=== PATIENT | female | born 1985 | race Caucasian/White ===

== ENCOUNTER 2016-04-28 09:14 | Emergency (ER) ==
[2016-04-28 09:27] VITALS: BP 110/78; TEMP 97.5; BMI 19.0
--- NOTE | 2016-04-28 09:36 | ED.PDOC ---
General ED Provider: Dr. RICCARDO SCOTT JR Chief Complaint: Tooth Problem Stated Complaint: FOR THE PAST WEEK UPPER AND LOWER GUMS VERY SORE.[End]3 days 97.5 77 16 98 7/10 UPPER AND LOWER GUMS DARK PINK IN COLOR.[End]. MOTRIN 600MG AT 2030 LAST NIGHT Time Seen by Physician: 09:31 Mode of Arrival: Walk-In Information Source: Patient Exam Limitations: No limitations Nursing and Triage Documentation Reviewed and Agree: No EENT Complaint Exam - Dental/Oral Complaint/Exam Tooth Findings: Present: Gross decay (note blck plaques between lower incisors patiet no=freda unable to manipulate floss due to closeness of neeth) Cervical Lymphadenopathy Present: No Facial Swelling Present: No Bleeding Present: No Review of Systems - Review Of Systems Constitutional: Reports: Malaise Eyes: Reports: No symptoms Ears, Nose, Mouth, Throat: Reports: Mouth pain Respiratory: Reports: No symptoms Cardiac: Reports: No symptoms GI: Reports: No symptoms : Reports: No symptoms Musculoskeletal: Reports: No symptoms Skin: Reports: No symptoms (note clubbing of fingers) Neurological: Reports: No symptoms Endocrine: Reports: No symptoms Hematologic/Lymphatic: Reports: No symptoms All Other Systems: Other Past Medical History - Past Medical History Endocrine: Reports: None Cardiovascular: Reports: None Respiratory: Reports: Bronchitis Hematological: Reports: None, Anemia Gastrointestinal: Reports: None Genitourinary: Reports: None Neuro/Psych: Reports: None, Migraine Musculoskeletal: Reports: None Cancer: Reports: None Last Menstrual Period: 04/20 Other Pertinent Past Medical History: discuss drug use by unable to determine if patient participating"wh - Surgical History General Surgical History: Reports: - Family History Family History: Reports: Unknown - Social History Smoking Status: Current some day smoker Hx Substance Use: No Alcohol Screening: None - Immunizations Tetanus Shot up to Date: Yes Physical Exam - Physical Exam Appearance: Well-appearing, Thin Pain Distress: Mild Eyes: KACEY, EOMI, Conjunctiva clear ENT: Erythema (gms with extensive interdental plaque) Neck: Supple Respiratory: Airway patent, Breath sounds clear, Breath sounds equal, Respirations nonlabored Psychiatric: Affect appropriate Critical Care Note - Critical Care Note Total Time (mins): 0 Course - Course Vital Signs: Temp Pulse Resp BP Pulse Ox 04/28/16 09:15 97.5 F L 77 16 110/78 98 Departure - Departure Time of Disposition: 09:40 Disposition: HOME SELF-CARE Discharge Problem: Gingivitis due to dental plaque Instructions: Gingivitis (ED) Condition: Fair Pt referred to PMD for follow-up: Yes Additional Instructions: Follow up with dentist as soon as possible antibiotic until gone Motrin for pain Willis for pain not controlled will require follow up with dentist; discuss ways of cleaning affected area return if fever over 101,0 Prescriptions: Hydrocodone Bit/Acetaminophen [Willis 5-325] 1 - 2 tab PO Q6HR PRN #12 tablet PRN Reason: pain Clindamycin HCl 300 mg PO QID #40 capsule Ibuprofen [Motrin] 600 mg PO QID PRN #30 tablet PRN Reason: PAIN Allergies/Adverse Reactions: Allergies hydrocodone [Hydrocodone] Allergy (Verified 07/25/15 05:49) Home Medications: Ambulatory Orders Clindamycin HCl 300 mg PO QID #40 capsule 04/28/16 Hydrocodone Bit/Acetaminophen [Willis 5-325] 1 - 2 tab PO Q6HR PRN #12 tablet Ibuprofen [Motrin] 600 mg PO QID PRN #30 tablet 04/28/16
== END 2016-04-28 09:55 | disposition home or self-care (01) ==
LOC: ED 09:14
DX: K05.10 Chronic gingivitis, plaque induced (principal); K02.9 Dental caries, unspecified; Z72.0 Tobacco use
CPT/HCPCS: 99282

== ENCOUNTER 2017-01-31 13:08 | Outpatient (CLI) ==
[2012-10-01 23:17] VITALS: TEMP 97.6
[2017-01-31 13:28] VITALS: BMI 16.4
== END 2017-01-31 13:09 | disposition critical access hospital (66) ==
LOC: AMBL 13:08
PROVIDERS: ATTEND Internal Medicine
DX: S61.411A Laceration without foreign body of right hand, initial encounter (principal); S19.9XXA Unspecified injury of neck, initial encounter; W25.XXXA Contact with sharp glass, initial encounter; Y04.8XXA Assault by other bodily force, initial encounter

== ENCOUNTER 2017-02-14 07:56 | Emergency (ER) ==
[2017-02-14 08:07] VITALS: BP 110/75; TEMP 97.2; BMI 16.7
--- NOTE | 2017-02-14 08:23 | ED.PDOC ---
General ED Provider: Dr. EFRAIN GONZALEZ Chief Complaint: Urinary Problem Stated Complaint: dysuria Time Seen by Physician: 08:10 Mode of Arrival: Walk-In Information Source: Patient Exam Limitations: No limitations Nursing and Triage Documentation Reviewed and Agree: Yes Complaint Exam - Complaint/Exam Patient Complains of: Reports: Dysuria Onset/Duration: 1 day Timing: Intermittent Episodes of Voiding Over Last 12 Hours: 3 Initial Severity: Mild Current Severity: Mild Location of Pain: Reports: Suprapubic Character: Reports: Cloudy urine Aggravating: Reports: None Alleviating: Reports: None Associated Signs and Symptoms: Reports: Dysuria. Denies: Diaphoresis, Back pain , Fever, Hematuria, Constipation, Blood in stool, Rectal pain, Appetite change, Nausea, Vomiting, Decreased urine output, Increased urine frequency, Increased thirst, Decreased activity, Lethargy, Abdominal Pain, Bubble bath use, Vaginal bleeding, Vaginal discharge, Genital swelling, Genital blisters, Retained foreign body Ectopic Risk Factors: Reports: None Ovarian Torsion Risk Factors: Reports: None Surgical Obstruction Risk Factors: Reports: None RH Status: Unknown Related Surgical History: Reports: None Abdominal Findings: Present: None Differential Diagnoses: Ovarian Torsion, UTI Review of Systems - Review Of Systems Constitutional: Reports: No symptoms Eyes: Reports: No symptoms Ears, Nose, Mouth, Throat: Reports: No symptoms Respiratory: Reports: No symptoms Cardiac: Reports: No symptoms GI: Reports: No symptoms : Reports: Dysuria Musculoskeletal: Reports: No symptoms Skin: Reports: No symptoms Neurological: Reports: No symptoms Endocrine: Reports: No symptoms Hematologic/Lymphatic: Reports: No symptoms All Other Systems: Reviewed and Negative Past Medical History - Past Medical History Previously Healthy: Yes Endocrine: Reports: None Cardiovascular: Reports: None Respiratory: Reports: Bronchitis Hematological: Reports: None, Anemia Gastrointestinal: Reports: None Genitourinary: Reports: None Neuro/Psych: Reports: None, Migraine Musculoskeletal: Reports: None Cancer: Reports: None Last Menstrual Period: last month Other Pertinent Past Medical History: discuss drug use by unable to determine if patient participating"wh - Surgical History General Surgical History: Reports: - Family History Family History: Reports: Unknown - Social History Smoking Status: Current every day smoker Hx Substance Use: Yes (in past) Alcohol Screening: None Physical Exam - Physical Exam Appearance: Well-appearing, No pain distress, Well-nourished Eyes: KACEY, EOMI, Conjunctiva clear ENT: Ears normal, Nose normal, Oropharynx normal Respiratory: Airway patent, Breath sounds clear, Breath sounds equal, Respirations nonlabored Cardiovascular: RRR, Pulses normal, No rub, No murmur GI/: Soft, Nontender, No masses, Bowel sounds normal, No Organomegaly Musculoskeletal: Normal strength, ROM intact, No edema, No calf tenderness Skin: Warm, Dry, Normal color Neurological: Sensation intact, Motor intact, Reflexes intact, Cranial nerves intact, Alert, Oriented Psychiatric: Affect appropriate, Mood appropriate Critical Care Note - Critical Care Note Total Time (mins): 0 Course - Course Vital Signs: Temp Pulse Resp BP Pulse Ox 02/14/17 08:04 97.2 F L 78 20 110/75 98 Departure - Departure Time of Disposition: 08:22 Disposition: HOME SELF-CARE Discharge Problem: Urinary symptoms, Urinary tract infectious disease Instructions: Dysuria (ED) Condition: Good Pt referred to PMD for follow-up: Yes Additional Instructions: Please call your Family Physician as soon as possible to schedule a follow-up appointment. Allergies/Adverse Reactions: Allergies hydrocodone [Hydrocodone] Allergy (Verified 02/14/17 08:07) Home Medications: Ambulatory Orders 1 [No Reported Medications] 01/31/17
== END 2017-02-14 08:30 | disposition home or self-care (01) ==
LOC: ED 07:56
DX: N39.0 Urinary tract infection, site not specified (principal); F17.210 Nicotine dependence, cigarettes, uncomplicated
CPT/HCPCS: 99282

== ENCOUNTER 2017-03-02 01:01 | Emergency (ER) ==
[2017-03-02 01:02] VITALS: BMI 16.7
[2017-03-02] MEDS ORDERED: TORADOL IM STA (01:16)
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
[2017-03-02 01:52] LABS: URINE PREGNANCY INTERNAL QC INTERNAL QC VALID
[2017-03-02 02:00] LABS: COCAIN SCREEN,URINE NEGATIVE (NEGATIVE)
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
[2017-03-02] MEDS ORDERED: ZITHROMAX PO STA (02:07)
[2017-03-02] MEDS ORDERED: ROCEPHIN 1 GM in SODIUM CHLORIDE 50 ML IV STA (02:07)
[2017-03-02] MEDS ORDERED: DUONEB NEB STA (02:08)
[2017-03-02] MEDS ORDERED: TYLENOL PO STA (02:09)
[2017-03-02 02:26] LABS: BASOPHILS # (AUTO) 0.1 K/uL (0-0.2); BASOPHILS % (AUTO) 0.4 % (0.0-3.0); EOSINOPHILS # (AUTO) 0.1 K/ul (0.0-0.7); HEMATOCRIT 29.9 % (37.0-47.0); HEMOGLOBIN 10.7 g/dl (12.0-16.0); IMMATURE GRANULOCYTE % (AUTO) 0.3 % (0.0-5.0); LYMPHOCYTES # (AUTO) 1.1 K/uL (0.60-3.4); LYMPHOCYTES % (AUTO) 7.5 (10.0-50.0); MEAN CORPUSCULAR HGB CONC 35.8 (31.8-35.4); MEAN CORPUSCULAR VOLUME 89.5 fl (81.0-99.0); MONOCYTES # (AUTO) 1.1 K/uL (0.4-2.0); MONOCYTES % (AUTO) 7.8 (0-10); NEUTROPHILS # (AUTO) 12.1 K/ul (2.0-6.9); PLATELET COUNT 246 10^3/uL (140-440); RED BLOOD COUNT 3.34 10^6/ul (4.20-5.40); WHITE BLOOD COUNT 14.62 K/ul (4.6-10.2)
[2017-03-02] MEDS ORDERED: SODIUM CHLORIDE 1,000 ML IV STA (02:38)
[2017-03-02] MEDS ORDERED: ROCEPHIN ONE (02:38)
[2017-03-02 02:43] LABS: FLU INTERNAL QC INTERNAL QC VALID; RAPID FLU A NEGATIVE (NEGATIVE); RAPID FLU B NEGATIVE (NEGATIVE)
[2017-03-02 02:49] LABS: ALBUMIN 3.1 g/dL (3.4-5.0); ALBUMIN/GLOBULIN RATIO 0.76; ANION GAP 14.4; BILIRUBIN,TOTAL 0.45 mg/dL (0.00-1.20); BUN/CREATININE RATIO 12.5; CALCIUM 9.1 mg/dL (8.2-10.2); CREATININE 0.8 mg/dL (0.60-1.30); POTASSIUM 3.4 mmol/L (3.5-5.10); TOTAL PROTEIN 7.2 g/dL (6.4-8.2)
[2017-03-02 04:26] VITALS: BP 118/58; TEMP 98.7
== END 2017-03-02 04:43 | disposition home or self-care (01) ==
LOC: ED 01:01
DX: S29.9XXA Unspecified injury of thorax, initial encounter (principal); J18.1 Lobar pneumonia, unspecified organism; Y04.2XXA Assault by strike against or bumped into by another person, initial encounter; F17.210 Nicotine dependence, cigarettes, uncomplicated
CPT/HCPCS: 36415; 80053; 80306; 81025; 83605; 84145; 85025; 87040; 87804; 94640; 96361; 96365; 96375; 99284